=== PATIENT | male | born 1980 | race Caucasian/White ===

== ENCOUNTER 2016-10-24 15:45 | Emergency (ER) | payer BC, MEDICAID, OTHER ==
[~2016-10-24] VITALS: Wt 72.0 kg
[2016-10-24] MEDS ORDERED: FAMOTIDINE 20 MG INJ IV STA (17:29)
[2016-10-24] MEDS ORDERED: ONDANSETRON 4 MG INJ IV STA (17:29)
[2016-10-24] MEDS ORDERED: KETOROLAC 30 MG INJ IV STA (17:29)
[2016-10-24 18:36] LABS: URINE BILIRUBIN (Dip) NEGATIVE (NEGATIVE); URINE BLOOD (Dip) NEGATIVE (NEGATIVE); URINE COLOR LT. YELLOW (YELLOW); URINE GLUCOSE (Dip) NEGATIVE (NEGATIVE); URINE KETONES (Dip) NEGATIVE (NEGATIVE); URINE LEUKOCYTE ESTERASE (Dip) NEGATIVE (NEGATIVE); URINE NITRITE (Dip) NEGATIVE (NEGATIVE); URINE UROBILINOGEN (Dip) 0.2 E.U./dL (0.1-1.0)
[2016-10-24 18:39] LABS: BASOPHILS % 0.3 % (0.0-2.0); EOSINOPHILS % 0.3 % (0.0-7.0); HEMATOCRIT 51.9 % (42.0-52.0); HEMOGLOBIN 18.1 g/dl (14.0-18.0); LYMPHOCYTES # 2.9 10^3/ul (0.8-2.9); LYMPHOCYTES % 21.4 % (15.0-51.0); MEAN CORPUSCULAR HEMOGLOBIN 34.9 pg (29.0-33.0); MEAN CORPUSCULAR HGB CONC 34.9 g/dl (32.0-37.0); MEAN CORPUSCULAR VOLUME 100.1 fl (82.0-101.0); MEAN PLATELET VOLUME 10.3 fl (7.4-10.4); MONOCYTE # 0.8 10^3/ul (0.3-0.9); MONOCYTES % 5.7 % (0.0-11.0); NEUTROPHIL # 9.8 10^3/ul (1.6-7.5); NEUTROPHILS % 72.3 % (39.0-77.0); PLATELET COUNT 230 10^3/UL (140-440); RED BLOOD COUNT 5.18 10^6/ul (4.70-6.10); RED CELL DISTRIBUTION WIDTH 13.1 % (11.5-14.5); UNCORRECTED WBC 13.5 10^3/ul (4.8-10.8); WHITE BLOOD COUNT 13.5 10^3/ul (4.8-10.8)
[2016-10-24 18:39] LABS: ADD UMIC NO; URINE TOTAL PROTEIN (Dip) NEGATIVE (NEGATIVE)
[2016-10-24 18:40] LABS: CONDITION 1
[2016-10-24 18:52] LABS: ALBUMIN 4.9 g/dl (3.3-4.9); POTASSIUM 4.1 mmol/L (3.5-5.1)
[2016-10-24 18:54] LABS: CREATININE 0.86 mg/dl (0.61-1.24)
[2016-10-24 18:55] LABS: ALBUMIN/GLOBULIN RATIO 1.32; CALCIUM 10.4 mg/dl (8.4-10.2); TOTAL PROTEIN 8.6 g/dl (6.1-8.1)
--- NOTE | 2016-10-24 19:10 | ERD ---
ER Documentation Chief Complaint Date/Time DATE: 10/24/16 TIME: 19:08 Chief Complaint AP AND NAUSEA FOR THE PAST FEW HOURS. NO VOMITING. FEELING CHILLS NO FEVER HPI This 36-year-old male who presents to the emergency department today complaining of diffuse abdominal pain. Patient states he also feels nauseated. Patient stated this started today. States he is burping a lot. Patient if he should've been drinking too . this morning and had some pain after that. Patient states he is concerned that he thinks he put something in his food. States he has a history of anxiety. Denies any fevers or chills. ROS All systems reviewed and are negative except as per history of present illness. Medications Home Meds Active Scripts Hydrocodone/Acetaminophen (Bourg 5-325 Tablet) 1 Each Tablet, 1 TAB PO Q6H Y for PAIN, #10 TAB Prov:JOHNSON CROCKER PA-C 10/24/16 Ondansetron Hcl* (Zofran*) 4 Mg Tablet, 4 MG PO Q6H for NAUSEA AND/OR VOMITING, #30 TAB Prov:JOHNSON CROCKER PA-C 10/24/16 Famotidine* (Pepcid*) 20 Mg Tablet, 20 MG PO BID for 10 Days, TAB Prov:JOHNSON CROCKER PA-C 10/24/16 PMhx/Soc Medical and Surgical Hx: pt denies Medical Hx, pt denies Surgical Hx Hx Alcohol Use: Yes (2-BEERS TODAY AT LUNCH) Hx Substance Use: No (DENIES) Hx Tobacco Use: No (DENIES) Physical Exam Vitals Vital Signs Date Time Temp Pulse Resp B/P Pulse Ox O2 Delivery O2 Flow Rate FiO2 10/24/16 19:48 98.3 100 16 145/93 100 Room Air 10/24/16 15:52 98.9 102 22 150/85 99 Physical Exam Const: Anxious Head: Atraumatic Eyes: Normal Conjunctiva ENT: Normal External Ears, Nose and Mouth. Neck: Full range of motion..~ No meningismus. Resp: Clear to auscultation bilaterally Cardio: Regular rate and rhythm, no murmurs Abd: Soft, diffuse abdominal tenderness, non distended. Normal bowel sounds Skin: No petechiae or rashes Neur: Awake and alert Psych: Normal Mood and Affect Result Diagram: 10/24/16182410/24/161824 Results 24 hrs Laboratory Tests Test 10/24/16 18:05 10/24/16 18:25 Urine Bilirubin NEGATIVE Urine Clarity CLEAR Urine Color LT. YELLOW Urine Glucose NEGATIVE% Urine Hemoglobin NEGATIVE Urine Ketones NEGATIVE Urine Leukocyte Esterase NEGATIVE Urine Nitrite NEGATIVE Urine Specific [place] 1.025 Urine Total Protein NEGATIVE Urine Urobilinogen 0.2 E.U./dL Urine pH 5.5 Alanine Aminotransferase (ALT/SGPT) 41IU/L Albumin 4.9g/dl Albumin/Globulin Ratio 1.32 Alkaline Phosphatase 64IU/L Anion Gap 19 Aspartate Amino Transf (AST/SGOT) 52IU/L Basophils # 0.010^3/ul Basophils % 0.3% Blood Urea Nitrogen 13mg/dl Calcium Level 10.4mg/dl Carbon Dioxide Level 29mmol/L Chloride Level 98mmol/L Creatinine 0.86mg/dl Direct Bilirubin 0.00mg/dl Eosinophils # 0.010^3/ul Eosinophils % 0.3% Globulin 3.70g/dl Glucose Level 99mg/dl Hematocrit 51.9% Hemoglobin 18.1g/dl Indirect Bilirubin 1.0mg/dl Lipase 56U/L Lymphocytes # 2.910^3/ul Lymphocytes % 21.4% Mean Corpuscular Hemoglobin 34.9pg Mean Corpuscular Hemoglobin Concent 34.9g/dl Mean Corpuscular Volume 100.1fl Mean Platelet Volume 10.3fl Monocytes # 0.810^3/ul Monocytes % 5.7% Neutrophils # 9.810^3/ul Neutrophils % 72.3% Nucleated Red Blood Cells # 0.010^3/ul Nucleated Red Blood Cells % 0.0/100WBC Platelet Count 87661^3/UL Potassium Level 4.1mmol/L Red Blood Count 5.1810^6/ul Red Cell Distribution Width 13.1% Sodium Level 142mmol/L Total Bilirubin 1.0mg/dl Total Protein 8.6g/dl White Blood Count 13.510^3/ul Current Medications Medications (Trade) Dose Ordered Sig/Odalys Route PRN Reason Start Time Stop Time Status Last Admin Dose Admin Ondansetron HCl (Zofran Inj) 4 mg ONCE STAT IV 10/24/16 17:29 10/24/16 17:31 DC 10/24/16 18:09 Famotidine (Pepcid Iv) 20 mg ONCE STAT IV 10/24/16 17:29 10/24/16 17:31 DC 10/24/16 18:09 Ketorolac Tromethamine (Toradol) 30 mg ONCE STAT IV 10/24/16 17:29 10/24/16 17:31 DC 10/24/16 18:09 Patient: ELY SOLIS : 1980 Age: 36 Sex: M [id number] DOS: 10/24/16 1729 Ordering MD: JOHNSON CROCKER PA-C Location: [facility] Room/Bed: PROCEDURE: CT Abdomen and Pelvis without contrast. CLINICAL INDICATION: Abdominal pain TECHNIQUE: CT scan of the abdomen and pelvis without contrast was performed on a multidetector high-resolution CT scanner. The patient was scanned without intravenous contrast. Coronal and sagittal reformatted images were obtained from the axial source images. Images were reviewed on a high-resolution PACS workstation. The total exam CTDI equals 7.60 mGy and the total exam DLP equals 462.98 mGy-cm. One or more of the following dose reduction techniques were used: Automated exposure control. Adjustment of the mA and/or kV according to patient size. Use of iterative reconstruction technique. COMPARISON: None FINDINGS: CT abdomen: The lung bases are clear. The heart size is normal, without pericardial thickening or effusion. The liver is normal in size and density without focal mass or intrahepatic biliary dilatation. The spleen is normal in size and homogeneous in density. The stomach is partially collapsed, but is grossly unremarkable. The pancreas as visualized is normal. The gallbladder and biliary tree are unremarkable and there is no evidence for biliary dilatation. The adrenal glands are symmetric and normal. The kidneys are symmetrically unremarkable as well. No renal calculus or obstructive uropathy or mass lesion is seen. The aorta is of normal caliber. There is no retroperitoneal lymphadenopathy. The ginny hepatis region is clear. The bowel and mesentery, as visualized, are equally unremarkable. CT pelvis: The small bowel loops situated within the pelvis are unremarkable. There is a prominent appendix measures up to 7 mm. There are no appendiceal inflammatory changes. The pelvic organs are normal. The pelvic sidewalls and inguinal regions are clear. The sigmoid colon and rectum are unremarkable. No mass, lymphadenopathy, or free fluid is seen. No acute inflammation is seen. No osteolytic or osteoblastic lesion is detected. IMPRESSION: 1. No mass, lymphadenopathy, or focal acute inflammatory process is identified. 2. Prominent appendix measures up to 7 mm in axial diameter with no periappendiceal inflammatory changes. This might represent early appendicitis in the appropriate clinical settings. RPTAT: HHO .Derian Mercado MD, MD Date Time Electronically viewed and signed by .Derian Mercado MD, on 10/24/2016 19:22 .O/ CC: JOHNSON CROCKER PA-C Procedures/MDM This 36-year-old male who presents to emergency department today complaining of abdominal pain and nausea and burping that started today that started today. On physical exam patient had diffuse abdominal pain therefore did obtain laboratory work as well as a CT scan. Laboratory work shows a white blood count 13.5. He is not anemic. His platelets are within normal limits. His electrolytes are within normal limits. His liver functions mildly elevated. His lipase is within normal limits. UA is negative for infection CT abdomen and pelvis noncontrast shows prominent appendix measuring up to 7 mm and axial diameter with no periappendiceal inflammatory changes. This may represent early appendicitis. Small bowel loops are unremarkable. There is no mass, lymphadenopathy or free fluid. The gallbladder and biliary tree are unremarkable and there is no evidence for biliary dilation dictation. It is no renal calculus or obstructive uropathy or mass lesion seen. Patient symptoms at this time consistent with abdominal pain with possible early appendicitis. Patient was given Zofran, Toradol, and Pepcid here in the emergency department. Pain improved. I discussed the patient with Dr. Wayne and he evaluated the patient and felt that the patient is stable for discharge and outpatient management. He has instructed the patient to return in 8 hours if patient's pain continued or worsened given the patient's laboratory work and CT scan of possible early appendicitis. Patient will be given a prescription for Bourg, Zofran and Pepcid for home. Patient understood. Departure Diagnosis: Primary Impression: Abdominal pain Abdominal location: generalized Qualified Code: R10.84 - Generalized abdominal pain Condition: Fair JOHNSON CROCKER PA-C Oct 24, 2016 19:10
--- NOTE | 2016-10-24 19:22 | RADRPT ---
PROCEDURE: CT Abdomen and Pelvis without contrast. CLINICAL INDICATION: Abdominal pain TECHNIQUE: CT scan of the abdomen and pelvis without contrast was performed on a multidetector hig h-resolution CT scanner. The patient was scanned without intravenous contrast. Coronal and sagittal reformatted images were obtained from the axial source images. Images were reviewed on a high-resol [employer] PACS workstation. The total exam CTDI equals 7.60 mGy and the total exam DLP equals 462.98 mGy -cm. One or more of the following dose reduction techniques were used: Automated exposure control. Adjustment of the mA and/or kV according to patient size. Use of iterative reconstruction technique. COMPARISON: None FINDINGS: CT abdomen: The lung bases are clear. The heart size is normal, without pericardial thickening or effusion. Th e liver is normal in size and density without focal mass or intrahepatic biliary dilatation. The sp mk is normal in size and homogeneous in density. The stomach is partially collapsed, but is gross ly unremarkable. The pancreas as visualized is normal. The gallbladder and biliary tree are unrema rkable and there is no evidence for biliary dilatation. The adrenal glands are symmetric and normal . The kidneys are symmetrically unremarkable as well. No renal calculus or obstructive uropathy or mass lesion is seen. The aorta is of normal caliber. There is no retroperitoneal lymphadenopathy. The ginny hepatis shayla on is clear. The bowel and mesentery, as visualized, are equally unremarkable. CT pelvis: The small bowel loops situated within the pelvis are unremarkable. There is a prominent appendix ollie sures up to 7 mm. There are no appendiceal inflammatory changes. The pelvic organs are normal. The pelvic sidewalls and inguinal regions are clear. The sigmoid colon and rectum are unremarkable. No mass, lymphadenopathy, or free fluid is seen. No acute inflammation is seen. No osteolytic or ost eoblastic lesion is detected. IMPRESSION: 1. No mass, lymphadenopathy, or focal acute inflammatory process is identified. 2. Prominent appendix measures up to 7 mm in axial diameter with no periappendiceal inflammatory roman nges. This might represent early appendicitis in the appropriate clinical settings. RPTAT: HHO .Derian Mercado MD, MD Date Time Electronically viewed and signed by .Derian Mercado MD, on 10/24/2016 19:22 .O/
[2016-10-24 19:48] VITALS: BP 145/93; PULSE 100; RESP 16; TEMP 98.3
[2016-10-24] MEDS ORDERED: FAMO-18 PO (19:57)
[2016-10-24] MEDS ORDERED: ONDA4TAB8 PO (19:58)
[2016-10-24] MEDS ORDERED: HYDR-906 PO (19:58)
== END 2016-10-24 20:06 | disposition home or self-care (01) ==
LOC: FTE 15:45
DX: R10.84 Generalized abdominal pain (principal); R11.0 Nausea
CPT/HCPCS: 74176; 80053; 81003; 83690; 85025; J1885; J2405; Z7610; 36415; 96374; 96375

== ENCOUNTER 2016-10-24 22:18 | Emergency (ER) | payer MEDICAID ==
[~2016-10-24] VITALS: Ht 167.6 cm; Wt 76.0 kg
[~2016-10-24 22:18] MED LIST: FAMO-18 PO; HYDR-906 PO; ONDA4TAB8 PO
[2016-10-24 22:25] VITALS: Ht 167.6 cm; Wt 76.0 kg
[2016-10-24] MEDS ORDERED: SOD CHLORIDE 0.9% 1,000 ML IV STA (22:35)
[2016-10-24 23:02] LABS: BASOPHILS % 0.4 % (0.0-2.0); EOSINOPHILS # 0.1 10^3/ul (0.0-0.5); EOSINOPHILS % 0.5 % (0.0-7.0); HEMATOCRIT 52.6 % (42.0-52.0); HEMOGLOBIN 18.1 g/dl (14.0-18.0); LYMPHOCYTES % 22.3 % (15.0-51.0); MEAN CORPUSCULAR HEMOGLOBIN 34.3 pg (29.0-33.0); MEAN CORPUSCULAR HGB CONC 34.3 g/dl (32.0-37.0); MONOCYTE # 0.9 10^3/ul (0.3-0.9); MONOCYTES % 6.5 % (0.0-11.0); NEUTROPHIL # 9.4 10^3/ul (1.6-7.5); NEUTROPHILS % 70.3 % (39.0-77.0); PLATELET COUNT 225 10^3/UL (140-440); RED BLOOD COUNT 5.26 10^6/ul (4.70-6.10); RED CELL DISTRIBUTION WIDTH 12.9 % (11.5-14.5); UNCORRECTED WBC 13.3 10^3/ul (4.8-10.8); WHITE BLOOD COUNT 13.3 10^3/ul (4.8-10.8)
[2016-10-24 23:03] LABS: CONDITION 1
[2016-10-24 23:13] LABS: ALBUMIN 4.8 g/dl (3.3-4.9); POTASSIUM 4.2 mmol/L (3.5-5.1)
[2016-10-24] MEDS ORDERED: SOD CHLORIDE 0.9% 100 ML ONE (23:13)
[2016-10-24] MEDS ORDERED: IOHEXOL 300MG/ML 150 ML BTL ONE (23:13)
[2016-10-24 23:15] LABS: BILIRUBIN,INDIRECT 1.4 mg/dl (0-1.1); BILIRUBIN,TOTAL 1.4 mg/dl (0.2-1.3); CREATININE 1.03 mg/dl (0.61-1.24)
[2016-10-24 23:16] LABS: ALBUMIN/GLOBULIN RATIO 1.29; CALCIUM 10.4 mg/dl (8.4-10.2); TOTAL PROTEIN 8.5 g/dl (6.1-8.1)
[2016-10-25 00:33] LABS: ADD UMIC NO; URINE BILIRUBIN (Dip) NEGATIVE (NEGATIVE); URINE BLOOD (Dip) NEGATIVE (NEGATIVE); URINE COLOR LT. YELLOW (YELLOW); URINE GLUCOSE (Dip) NEGATIVE (NEGATIVE); URINE KETONES (Dip) NEGATIVE (NEGATIVE); URINE LEUKOCYTE ESTERASE (Dip) NEGATIVE (NEGATIVE); URINE NITRITE (Dip) NEGATIVE (NEGATIVE); URINE TOTAL PROTEIN (Dip) NEGATIVE (NEGATIVE); URINE UROBILINOGEN (Dip) 0.2 E.U./dL (0.1-1.0)
[2016-10-25] MEDS ORDERED: DICLOFENAC SODIUM 37.5 MG/ML VIAL IV STA (00:42)
--- NOTE | 2016-10-25 00:58 | RADRPT ---
PROCEDURE: CT abdomen and pelvis with contrast. CLINICAL INDICATION: Pain. TECHNIQUE: CT of the abdomen/pelvis was performed utilizing axial images with reconstructions in s agittal and coronal planes following the intravenous administration of 100 cc Isovue 300 contrast. T he administered radiation dose is CTDI 8.2 mGy, DLP 485 mGy-cm. COMPARISON: Examination performed earlier the same day. FINDINGS: Visualized Chest: The visualized lung bases are clear. Abdomen: The liver, spleen, pancreas, gallbladder, kidneys and adrenal glands are unremarkable. There is no evidence of bowel obstruction. The appendix is normal. No intra-abdominal free air is seen. There is no evidence of intra-abdominal adenopathy or free fluid. Pelvis: There is no evidence of pelvic adenopathy of free fluid. The prostate and bladder are unremarkable. Osseous structures: Unremarkable. IMPRESSION: No acute findings. Normal appendix. RPTAT: HIKT .John Yoder MD, MD Date Time Electronically viewed and signed by .John Yoder MD, MD on 10/25/2016 00:58 .T/
--- NOTE | 2016-10-25 01:14 | ERD ---
ER Documentation Chief Complaint Date/Time DATE: 10/25/16 TIME: 01:13 Chief Complaint right upper abd pain x 1 day. was here earlier for same HPI There is a 37 mL to the right upper quadrant abdominal pain for 1 day. Patient was seen here earlier today until the possible appendicitis. Denies any fevers or chills. Denies any nausea vomiting. The pain is come back somewhat but is not as bad as it was before. No other current complaints ROS All systems reviewed and are negative except as per history of present illness. Medications Home Meds Active Scripts Hydrocodone/Acetaminophen ([place] 5-325 Tablet) 1 Each Tablet, 1 TAB PO Q6H Y for PAIN, #10 TAB Prov:JOHNSON CROCKER PA-C 10/24/16 Ondansetron Hcl* (Zofran*) 4 Mg Tablet, 4 MG PO Q6H for NAUSEA AND/OR VOMITING, #30 TAB Prov:JOHNSON CROCKER PA-C 10/24/16 Famotidine* (Pepcid*) 20 Mg Tablet, 20 MG PO BID for 10 Days, TAB Prov:JOHNSON CROCKERC 10/24/16 Allergies Allergies: Coded Allergies: No Known Drug Allergies (Verified Allergy, Unknown, 10/24/16) PMhx/Soc Medical and Surgical Hx: pt denies Medical Hx, pt denies Surgical Hx History of Surgery: No Anesthesia Reaction: No Hx Neurological Disorder: No Hx Respiratory Disorders: No Hx Cardiac Disorders: No Hx Psychiatric Problems: Yes ("panic attacks") Hx Miscellaneous Medical Probl: No Hx Alcohol Use: Yes ("partied last night"; then 2 orozco beers this morning) Hx Substance Use: No (DENIES) Hx Tobacco Use: Yes (4 cigarettes/ day) Smoking Status: Current every day smoker Physical Exam Vitals Vital Signs Date Time Temp Pulse Resp B/P Pulse Ox O2 Delivery O2 Flow Rate FiO2 10/25/16 00:52 84 17 144/95 99 Room Air 10/24/16 22:25 98.8 110 20 151/89 98 Physical Exam Const: [] Head: Atraumatic Eyes: Normal Conjunctiva ENT: Normal External Ears, Nose and Mouth. Neck: Full range of motion..~ No meningismus. Resp: Clear to auscultation bilaterally Cardio: Regular rate and rhythm, no murmurs Abd: Soft, non tender, non distended. Normal bowel sounds Skin: No petechiae or rashes Back: No midline or flank tenderness Ext: No cyanosis, or edema Neur: Awake and alert Psych: Normal Mood and Affect Result Diagram: 10/24/16224410/24/162244 Results 24 hrs Laboratory Tests Test 10/24/16 22:45 10/25/16 00:00 Alanine Aminotransferase (ALT/SGPT) 39IU/L Albumin 4.8g/dl Albumin/Globulin Ratio 1.29 Alkaline Phosphatase 58IU/L Anion Gap 19 Aspartate Amino Transf (AST/SGOT) 38IU/L Basophils # 0.010^3/ul Basophils % 0.4% Blood Urea Nitrogen 16mg/dl Calcium Level 10.4mg/dl Carbon Dioxide Level 28mmol/L Chloride Level 99mmol/L Creatinine 1.03mg/dl Direct Bilirubin 0.00mg/dl Eosinophils # 0.110^3/ul Eosinophils % 0.5% Globulin 3.70g/dl Glucose Level 111mg/dl Hematocrit 52.6% Hemoglobin 18.1g/dl Indirect Bilirubin 1.4mg/dl Lipase 52U/L Lymphocytes # 3.010^3/ul Lymphocytes % 22.3% Mean Corpuscular Hemoglobin 34.3pg Mean Corpuscular Hemoglobin Concent 34.3g/dl Mean Corpuscular Volume 100.0fl Mean Platelet Volume 10.0fl Monocytes # 0.910^3/ul Monocytes % 6.5% Neutrophils # 9.410^3/ul Neutrophils % 70.3% Nucleated Red Blood Cells # 0.010^3/ul Nucleated Red Blood Cells % 0.0/100WBC Platelet Count 03347^3/UL Potassium Level 4.2mmol/L Red Blood Count 5.2610^6/ul Red Cell Distribution Width 12.9% Sodium Level 142mmol/L Total Bilirubin 1.4mg/dl Total Protein 8.5g/dl White Blood Count 13.310^3/ul Urine Bilirubin NEGATIVE Urine Clarity CLEAR Urine Color LT. YELLOW Urine Glucose NEGATIVE% Urine Hemoglobin NEGATIVE Urine Ketones NEGATIVE Urine Leukocyte Esterase NEGATIVE Urine Nitrite NEGATIVE Urine Specific [place] 1.010 Urine Total Protein NEGATIVE Urine Urobilinogen 0.2 E.U./dL Urine pH 5.5 Current Medications Medications (Trade) Dose Ordered Sig/Odalys Route PRN Reason Start Time Stop Time Status Last Admin Dose Admin Sodium Chloride (NS) 1,000 ml @ 1,000 mls/hr Q1H STAT IV 10/24/16 22:35 10/24/16 23:34 DC 10/24/16 22:51 IV Flush 10 ml 10 ml STK-MED ONCE .ROUTE 10/24/16 23:13 10/24/16 23:14 DC 10/24/16 23:25 Sodium Chloride (NS) 100 ml @ ud STK-MED ONCE .ROUTE 10/24/16 23:13 10/24/16 23:14 DC 10/24/16 23:25 Iohexol (Omnipaque 300mg/ ml) 150 ml STK-MED ONCE .ROUTE 10/24/16 23:13 10/24/16 23:14 DC 10/24/16 23:26 Diclofenac Sodium (Dyloject) 37.5 mg ONCE STAT IV 10/25/16 00:42 10/25/16 00:43 DC 10/25/16 00:50 Procedures/MDM CT of the abdomen and pelvis with IV contrast is negative for appendicitis Medical decision making: Incidental comes in with a differential abdominal pain. At this point he is a nonsurgical abdomen is tolerating p.o. He will be discharged home. Follow-up in 8 hours for serial abdominal exams. Follow-up with PCP tomorrow. Departure Diagnosis: Primary Impression: Abdominal pain Abdominal location: right lower quadrant Qualified Code: R10.31 - Right lower quadrant abdominal pain Condition: Stable NAKITA CHRISTIANSON Oct 25, 2016 01:14
[2016-10-25 01:37] VITALS: BP 144/92; PULSE 78; RESP 20
== END 2016-10-25 01:41 | disposition home or self-care (01) ==
LOC: E/R 22:18
DX: R10.11 Right upper quadrant pain (principal); R40.2252 Coma scale, best verbal response, oriented, at arrival to emergency department; F17.210 Nicotine dependence, cigarettes, uncomplicated; R40.2142 Coma scale, eyes open, spontaneous, at arrival to emergency department; R40.2362 Coma scale, best motor response, obeys commands, at arrival to emergency department
CPT/HCPCS: 36415; 74177; 80053; 81003; 83690; 85025; 96361; 96374; J7030; Q9967; Z7502; Z7610